=== PATIENT | female | born 1985 | race Two or more races ===

== ENCOUNTER 2024-08-24 14:38 | Inpatient (IN) | payer MEDICAID, OTHER ==
[~2024-08-24] VITALS: Ht 170.2 cm; Wt 95.0 kg
[2024-08-24 15:40] LABS: Hemoglobin 9.2 g/dL (12.2-16.2); Mean Corpuscular Hemoglobin 30.2 pg (28.0-32.0)
[2024-08-24 15:42] LABS: Mean Corpuscular Volume 88.8 fL (80.0-100.0); Platelet Count (auto) 281 10^3/uL (140-450); Red Blood Cells 3.05 10^6/uL (4.0-5.20)
[2024-08-24 15:53] LABS: Chloride 104 mmol/L (98-107); Potassium 3.6 mmol/L (3.5-5.1); Red Cell Distribution Width 21.2 % (11.8-14.3); Sodium 138 mmol/L (136-145)
[2024-08-24 15:54] LABS: Anion Gap 6 (5-15); Calcium 10.4 mg/dL (8.7-10.4); Carbon Dioxide 28 mmol/L (20-31)
[2024-08-24 15:55] LABS: White Blood Cell 1.4 10^3/uL (4.4-10.8)
[2024-08-24 15:56] LABS: Band Neutrophils % (manual) 0; Basophils % (manual) 0 (0.0-2.0); Blast Cells 0; Eosinophils % (manual) 0 (0-7); Metamyelocytes % 0; Myelocytes % 0; Promyelocytes % 0; Reactive Lymphocytes 0
[2024-08-24 15:59] LABS: BUN/Creatinine Ratio 12.2 (10.0-20.0); Blood Urea Nitrogen 14 mg/dL (9-23); Glucose 93 mg/dL (74-106)
[2024-08-24 16:25] LABS: Urine Bacteria None Seen /hpf (None Seen)
[2024-08-24 16:47] LABS: Anisocytosis Slight; Lymphocytes % (manual) 64 (10.0-50.0); Monocytes % (manual) 4 (0-12); Platelet Estimate Adequate
[2024-08-24 16:56] LABS: Urine Blood Negative /uL (Negative); Urine Clarity Turbid (Clear); Urine Color Yellow (Yellow); Urine Mucus FEW (None Seen); Urine Protein, UAD 1+ (Negative); Urine Specific Gravity 1.029 (1.001-1.035); Urine Urobilinogen 3 mg/dL (Negative); Urine WBC 14 /hpf (0 - 5); Urine pH 6.5 (5.0-9.0)
[2024-08-24 18:55] VITALS: PULSE 78; RESP 20; O2SAT 99
[2024-08-24 19:30] VITALS: TEMP 98.3
[2024-08-24] MEDS: SODIUM CHLORIDE 0.9% 1,000 ML IV ONE (20:01)
[2024-08-24] MEDS: KETOROLAC TROMETH 30 MG/ML 1ML VIAL IV ONE (20:11)
[2024-08-24] MEDS: MORPHINE SULFATE 4 MG/ML SYR/VIAL IV ONE (20:13)
[2024-08-24] MEDS: ONDANSETRON HCL 4 MG/2 ML VIAL IV ONE (20:15)
[2024-08-24] MEDS ORDERED: NITROGLYCERIN 0.4 MG SL TAB SL PRN (23:00)
[2024-08-24] MEDS ORDERED: MORPHINE SULFATE INJ 2 MG/ml SYRG IV PRN (23:00)
[2024-08-25] MEDS ORDERED: HYDROmorphone HCL 2 MG/ML VL/or syr IV PRN (01:00)
[2024-08-25] MEDS ORDERED: PEMB1INJ IV (01:58)
[2024-08-25] MEDS ORDERED: [UNRECOGNIZED DRUG - CODE] IJ (01:58)
[2024-08-25] MEDS ORDERED: DOXO2INJ IV (01:58)
[2024-08-25] MEDS: ONDANSETRON HCL 4 MG/2 ML VIAL IM ONE (02:02)
[2024-08-25] MEDS: ACETAMINOPHEN 325 MG TAB PO PRN (06:33)
[2024-08-25] MEDS: ONDANSETRON HCL 4 MG/2 ML VIAL IV PRN (06:38)
[2024-08-25 11:00] VITALS: BP 128/86; PULSE 70; RESP 13; O2SAT 100
[2024-08-25] MEDS: SODIUM CHLORIDE 0.9% 1,000 ML IV SCH (11:15)
== END 2024-08-25 11:42 | disposition left against medical advice (07) | DRG 249 ==
LOC: ER 14:38 → TELE 23:04
PROVIDERS: ADMIT Internal Medicine Geriatric Medicine; ATTEND Emergency Medicine
DX: E86.0 Dehydration (principal); K52.9 Noninfective gastroenteritis and colitis, unspecified; N17.9 Acute kidney failure, unspecified; D64.9 Anemia, unspecified; T45.1X5A Adverse effect of antineoplastic and immunosuppressive drugs, initial encounter; D72.819 Decreased white blood cell count, unspecified; Z53.29 Procedure and treatment not carried out because of patient's decision for other reasons; I10 Essential (primary) hypertension; F41.9 Anxiety disorder, unspecified; Z90.710 Acquired absence of both cervix and uterus; Y92.89 Other specified places as the place of occurrence of the external cause
CPT/HCPCS: 36415; 70450; 73090; 73562; 80048; 81001; 84484; 85007; 85027; 93005; 96374; 96375; G0378; J1885; J2405